=== PATIENT | female | born 1985 | race Caucasian/White ===

== ENCOUNTER 2016-11-12 08:09 | Emergency (ER) | payer OTHER ==
[~2016-11-12] VITALS: Ht 157.5 cm; Wt 54.9 kg
[~2016-11-12 08:09] MED LIST: BACT800T5 PO
[2016-11-12 08:27] VITALS: BP 105/77; PULSE 88; RESP 16; TEMP 98.1; O2SAT 100
[2016-11-12 08:45] LABS: BLOOD, URINE NEG (NEG); GLUCOSE,URINE NEG (NEG); KETONE, URINE NEG (NEG); METHOD OF COLLECTION CLEAN CATCH; NITRITE,URINE POS (NEG); PH, URINE 7.5 (5.0-8.5); URINE COLOR YELLOW (YELLW/STRAW)
[2016-11-12 08:50] LABS: BACTERIA, URINE MANY /hpf; COMMENT (UR) CULTURE INDICATED; CULTURE IF INDICATED CULTURE INDICATED
[2016-11-12] MEDS ORDERED: PYRI200T4 PO (09:02)
[2016-11-12] MEDS ORDERED: BACT800T5 PO (09:02)
--- NOTE | 2016-11-12 09:02 | PD ---
HPI Chief Complaint: Complaint Time Seen by Provider: 08:55 Travel History International Travel<30 days: No Contact w/Intl Traveler<30days: No Traveled to known affect area: No History of Present Illness HPI The patient is a 31-year-old female who presents emergency department for urinary symptoms of 3 days' duration. The patient complains of urgency, frequency, and discomfort with urination. She also complains of low back pain, malaise, and lethargy. She denies any fevers, chills, or sweats. The patient does have a history of UTIs with similar symptoms in the past. The patient's last menstrual cycle was November 02, 2016. She notes a history of tubal ligation. The patient denies any vaginal discharge, vaginal bleeding, or upper abdominal pain. Symptoms are moderate, possibly exacerbated by UTI, and there are no current alleviating symptoms. PFSH Past Medical History Bipolar Disorder: Yes Anxiety: Yes Depression: Yes Diabetes: No Diminished Hearing: No Neurologic: Yes (VERTIGO) Psychiatric: Yes (MOOD DISORDER) Reproductive: Yes Respiratory: Yes Immunizations Current: Yes Tetanus Vaccination: Unknown Influenza Vaccination: No ?: Not LMP: tubal ligation : 4 Para: 2 Miscarriage: 2 Ovarian Cysts: Yes Tubal Ligation: Yes (2012) Past Surgical History Gynecologic Surgery: Yes (LAPARSCOPIC , HX ENDOMETRIOSIS) Social History Alcohol Use: Yes (OCC) Tobacco Use: No Substance Use: No Allergies-Medications (Allergen,Severity, Reaction): Coded Allergies: Banana (Verified Allergy, Severe, MOUTH ON FIRE, 11/12/16) Latex (Verified Allergy, Severe, Irritation, 11/12/16) Tobramycin (Verified Allergy, Severe, SWOLLEN TEAR DUCT, 11/12/16) *MDRO Multi-Drug Resistant Organism (Unverified Allergy, Unknown, 11/12/16) MRSA 2006 and 2008 Reported Meds & Prescriptions Reported Meds & Active Scripts Active No Active Prescriptions or Reported Medications Review of Systems Except as stated in HPI: all other systems reviewed are Neg General / Constitutional: No: Fever Gastrointestinal: No: Nausea, Vomiting, Diarrhea, Abdominal Pain Genitourinary: Positive: Urgency, Frequency, Dysuria, Pelvic Pain (suprapubic discomfort), No: Discharge, Vaginal Bleeding Musculoskeletal: Positive: Pain (low back pain), No: Myalgias Physical Exam Narrative GENERAL: Awake, alert, pleasant 31-year-old female who appears her stated age and is in no acute respiratory distress. SKIN: Warm and dry. HEAD: Atraumatic. Normocephalic. EYES: No injection or drainage.. NECK: Trachea midline. No JVD. GASTROINTESTINAL: Abdomen soft, mild suprapubic discomfort. Back: No CVA tenderness. MUSCULOSKELETAL: No obvious deformities. No clubbing. No cyanosis. No edema. NEUROLOGICAL: Awake and alert. No obvious cranial nerve deficits. Motor grossly within normal limits. Normal speech. PSYCHIATRIC: Appropriate mood and affect; insight and judgment normal. Data Data Last Documented VS Vital Signs Date Time Temp Pulse Resp B/P Pulse Ox O2 Delivery O2 Flow Rate FiO2 11/12/16 08:27 98.1 88 16 105/77 100 Orders Urinalysis - C+S If Indicated (11/12/16 08:17) Ed Urine Pregnancytest Poc (11/12/16 08:17) Urine Culture (11/12/16 08:28) Labs Laboratory Tests Test 11/12/16 08:28 Urine Collection Type CLEAN CATCH Urine Color YELLOW Urine Turbidity SLIGHTY CLOUDY Urine pH 7.5 Urine Specific [place] 1.016 Urine Protein NEG mg/dL Urine Glucose (UA) NEG mg/dL Urine Ketones NEG mg/dL Urine Occult Blood NEG Urine Nitrite POS Urine Bilirubin NEG Urine Leukocyte Esterase TRACE Urine WBC 6-8 /hpf Urine Bacteria MANY /hpf Microscopic Urinalysis Comment CULTURE INDICATED MDM Medical Decision Making Medical Screen Exam Complete: Yes Emergency Medical Condition: Yes Medical Record Reviewed: Yes Interpretation(s) Laboratory Tests Test 11/12/16 08:28 Urine Collection Type CLEAN CATCH Urine Color YELLOW Urine Turbidity SLIGHTY CLOUDY Urine pH 7.5 Urine Specific [place] 1.016 Urine Protein NEG mg/dL Urine Glucose (UA) NEG mg/dL Urine Ketones NEG mg/dL Urine Occult Blood NEG Urine Nitrite POS Urine Bilirubin NEG Urine Leukocyte Esterase TRACE Urine WBC 6-8 /hpf Urine Bacteria MANY /hpf Microscopic Urinalysis Comment CULTURE INDICATED Differential Diagnosis Differential diagnosis includes UTI, cystitis, hemorrhagic cystitis, pyelonephritis, vaginitis, PID, cervicitis, atypical appendicitis. Narrative Course A UA was sent to lab which reveals nitrites, WBCs, and bacteria. Therefore, patient will be treated with Bactrim and pirating them. The patient denies any vaginal discharge. Bedside UA test was negative. Patient is advised to return if symptoms worsen or progress. Diagnosis Primary Impression: UTI (urinary tract infection) Qualified Code: N30.00 - Acute cystitis without hematuria Patient Instructions: General Instructions Additional Instructions: Medications as directed. Follow-up with your primary physician. Return if symptoms worsen or progress. Med/Other Pt SpecificInfo: Prescription(s) given Scripts Phenazopyridine (Pyridium)200 Mg [id number] Mg PO Q8H PRN (DYSURIA) 2 Days Ref 0 Prov:Isaias Garcia MD 11/12/16 Sulfamethoxazole-Trimethoprim (Bactrim DS)800-160 Mg Tab1 Tab PO BID #14 TAB Ref 0 Prov:Isaias Garcia MD 11/12/16 Disposition: 01 DISCHARGE HOME Condition: Stable Isaias Garcia MD Nov 12, 2016 09:02
[2016-12-15] MEDS ORDERED: LO LTAB PO (11:02)
[2016-12-15] MEDS ORDERED: NAPR550 PO (11:02)
[2016-12-15] MEDS ORDERED: METR-1 PO (11:02)
[2016-12-15] MEDS ORDERED: NAPR500T PO (14:54)
[2016-12-22] MEDS ORDERED: IBUP800T23 PO (10:57)
[2016-12-29] MEDS ORDERED: MACR100C2 PO (10:40)
[2017-02-02] MEDS ORDERED: NORE0.354 PO (13:31)
[2017-03-03] MEDS ORDERED: NORE0.354 PO (13:45)
[2017-03-03] MEDS ORDERED: FLUC150T PO (13:47)
== END 2016-11-12 09:20 | disposition home or self-care (01) ==
LOC: PHED 08:09
DX: N39.0 Urinary tract infection, site not specified (principal); F31.9 Bipolar disorder, unspecified; F41.8 Other specified anxiety disorders; R42 Dizziness and giddiness; F39 Unspecified mood [affective] disorder
CPT/HCPCS: 81001; 84703; 87077; 87086; 87186; 99283

== ENCOUNTER 2016-11-26 17:33 | Emergency (ER) | payer OTHER ==
[~2016-11-26] VITALS: Ht 157.5 cm; Wt 55.7 kg
[~2016-11-26 17:33] MED LIST changes: +PYRI200T4 PO
[2016-11-26 17:34] VITALS: BP 117/86; PULSE 105; RESP 16; TEMP 98.5; O2SAT 9; O2SAT 99
[2016-11-26 18:47] LABS: BLOOD, URINE NEG (NEG); GLUCOSE,URINE NEG (NEG); KETONE, URINE TRACE mg/dL (NEG); NITRITE,URINE NEG (NEG)
[2016-11-26 19:08] LABS: METHOD OF COLLECTION VOIDED
[2016-11-26 19:09] LABS: URINE COLOR YELLOW (YELLW/STRAW); WBC, URINE 0-2 /hpf (0-5)
[2016-11-26 19:10] LABS: BACTERIA, URINE RARE /hpf; COMMENT (UR) CULT NOT INDICATED; CULTURE IF INDICATED CULT NOT INDICATED
[2016-11-26] MEDS ORDERED: SODIUM CHLOR 0.9% 1000 ML INJ 1,000 ML IV SCH (19:18)
--- NOTE | 2016-11-26 19:24 | PD ---
HPI Chief Complaint: Abdominal Pain Time Seen by Provider: 19:20 Travel History International Travel<30 days: No Contact w/Intl Traveler<30days: No Traveled to known affect area: No History of Present Illness HPI Patient is a 31-year-old female presenting to the emergency department for evaluation of right lower quadrant abdominal pain. Patient states that started at approximately 2 PM when she was at work. She states the pain was so bad that it caused her to vomit. She denies any fevers, chills, back pain, diarrhea , constipation. Patient has had a tubal ligation. Patient states the pain is somewhat improved from the initial onset however it is still there. She rates her pain a 5 out of 10. PFSH Past Medical History Bipolar Disorder: Yes Anxiety: Yes Depression: Yes Diabetes: No Diminished Hearing: No Neurologic: Yes (VERTIGO) Psychiatric: Yes (MOOD DISORDER) Reproductive: Yes Respiratory: Yes Immunizations Current: Yes Tetanus Vaccination: > 5 Years Influenza Vaccination: No ?: Not LMP: 11/07/2016 : 4 Para: 2 Miscarriage: 2 Ovarian Cysts: Yes Tubal Ligation: Yes (2012) Past Surgical History Gynecologic Surgery: Yes (LAPARSCOPIC , HX ENDOMETRIOSIS) Social History Alcohol Use: Yes (OCC) Tobacco Use: No Substance Use: No Allergies-Medications (Allergen,Severity, Reaction): Coded Allergies: Banana (Verified Allergy, Severe, MOUTH ON FIRE, 11/26/16) Latex (Verified Allergy, Severe, Irritation, 11/26/16) Tobramycin (Verified Allergy, Severe, SWOLLEN TEAR DUCT, 11/26/16) *MDRO Multi-Drug Resistant Organism (Unverified Allergy, Unknown, 11/26/16) MRSA 2006 and 2008 Reported Meds & Prescriptions Reported Meds & Active Scripts Active Pyridium (Phenazopyridine HCl) 200 Mg Tab 200 Mg PO Q8H PRN 2 Days Bactrim DS (Sulfamethoxazole-Trimethoprim) 800-160 Mg Tab 1 Tab PO BID Review of Systems Except as stated in HPI: all other systems reviewed are Neg Eyes: No: Blurred Vision HENT: Positive: Headaches Cardiovascular: No: Chest Pain or Discomfort Respiratory: No: Shortness of Breath Gastrointestinal: Positive: Nausea, Abdominal Pain Genitourinary: No: Dysuria Physical Exam Narrative GENERAL: Developed, well-nourished, alert female. Resting comfortably in no acute distress SKIN: Warm and dry. HEAD: Atraumatic. Normocephalic. EYES: Pupils equal and round. No scleral icterus. No injection or drainage. ENT: No nasal bleeding or discharge. Mucous membranes pink and moist. NECK: Trachea midline. No JVD. CARDIOVASCULAR: Regular rate and rhythm. No murmur appreciated. RESPIRATORY: No accessory muscle use. Clear to auscultation. Breath sounds equal bilaterally. GASTROINTESTINAL: Abdomen soft, and her to palpation in right lower quadrant. No rebound, positive guarding. Positive bowel sounds MUSCULOSKELETAL: No obvious deformities. No clubbing. No cyanosis. No edema. NEUROLOGICAL: Awake and alert. No obvious cranial nerve deficits. Motor grossly within normal limits. Normal speech. PSYCHIATRIC: Appropriate mood and affect; insight and judgment normal. Data Data Last Documented VS Vital Signs Date Time Temp Pulse Resp B/P Pulse Ox O2 Delivery O2 Flow Rate FiO2 11/26/16 20:08 16 11/26/16 20:07 88 109/62 97 Room Air 11/26/16 17:34 98.5 Orders Urinalysis - C+S If Indicated (11/26/16 17:39) Ed Urine Pregnancytest Poc (11/26/16 17:39) Complete Blood Count With Diff (11/26/16 19:18) Comprehensive Metabolic Panel (11/26/16 19:18) Lipase (11/26/16 19:18) Lactic Acid (11/26/16 19:18) Ct Abd/Pel W Iv Contrast(Rout) (11/26/16 19:18) Iv Access Insert/Monitor (11/26/16 19:18) Ondansetron Inj (Zofran Inj) (11/26/16 19:30) Sodium Chlor 0.9% 1000 Ml Inj (Ns 1000 M (11/26/16 19:18) Sodium Chloride 0.9% Flush (Ns Flush) (11/26/16 19:30) Ketorolac Inj (Toradol Inj) (11/26/16 19:30) Iohexol 350 Inj (Omnipaque 350 Inj) (11/26/16 19:47) Morphine Inj (Morphine Inj) (11/26/16 20:15) Labs Laboratory Tests Test 11/26/16 11/26/16 11/26/16 18:18 18:55 19:30 Urine Collection Type VOIDED Urine Color YELLOW Urine Turbidity CLEAR Urine pH 6.0 Urine Specific [place] 1.014 Urine Protein NEG mg/dL Urine Glucose (UA) NEG mg/dL Urine Ketones TRACE mg/dL Urine Occult Blood NEG Urine Nitrite NEG Urine Bilirubin NEG Urine Leukocyte Esterase NEG Urine WBC 0-2 /hpf Urine Squamous Epithelial 6-8 /hpf Cells Urine Bacteria RARE /hpf Microscopic Urinalysis Comment CULT NOT INDICATED Urine Collection Time 181 White Blood Count 8.3 TH/MM3 Red Blood Count 4.26 MIL/MM3 Hemoglobin 13.3 GM/DL Hematocrit 38.7 % Mean Corpuscular Volume 90.8 FL Mean Corpuscular Hemoglobin 31.2 PG Mean Corpuscular Hemoglobin 34.4 % Concent Red Cell Distribution Width 11.7 % Platelet Count 374 TH/MM3 Mean Platelet Volume 7.4 FL Neutrophils (%) (Auto) 67.3 % Lymphocytes (%) (Auto) 24.4 % Monocytes (%) (Auto) 4.7 % Eosinophils (%) (Auto) 1.0 % Basophils (%) (Auto) 2.6 % Neutrophils # (Auto) 5.6 TH/MM3 Lymphocytes # (Auto) 2.0 TH/MM3 Monocytes # (Auto) 0.4 TH/MM3 Eosinophils # (Auto) 0.1 TH/MM3 Basophils # (Auto) 0.2 TH/MM3 CBC Comment DIFF FINAL Differential Comment Sodium Level 140 MEQ/L Potassium Level 3.5 MEQ/L Chloride Level 105 MEQ/L Carbon Dioxide Level 27.8 MEQ/L Anion Gap 7 MEQ/L Blood Urea Nitrogen 10 MG/DL Creatinine 0.66 MG/DL Estimat Glomerular Filtration 104 ML/MIN Rate Random Glucose 85 MG/DL Calcium Level 8.6 MG/DL Total Bilirubin 0.4 MG/DL Aspartate Amino Transf 18 U/L (AST/SGOT) Alanine Aminotransferase 27 U/L (ALT/SGPT) Alkaline Phosphatase 75 U/L Total Protein 7.7 GM/DL Albumin 4.1 GM/DL Lipase 98 U/L Lactic Acid Level 0.6 mmol/L [facility] Medical Decision Making Medical Screen Exam Complete: Yes Emergency Medical Condition: Yes Interpretation(s) Vital Signs Date Time Temp Pulse Resp B/P Pulse Ox O2 Delivery O2 Flow Rate FiO2 11/26/16 17:34 98.5 105 16 117/86 99 Differential Diagnosis Appendicitis versus obstruction versus colitis versus ovarian cyst versus ovarian torsion versus other Narrative Course Patient is a 31-year-old female presenting to the emergency department for evaluation of right lower quadrant abdominal pain. Pain started approximately 2 PM this afternoon. Patient is mildly tender on exam. CT, labs ordered and pending. Patient given Toradol for her headache, pain medication order per my attending physician. CT scan abdomen and pelvis is negative for acute abnormality. It does show mild constipation. CBC, chemistry, urinalysis is unremarkable. Her is negative. Patient 's vital signs are stable. Patient will be discharged home with a bowel regimen. Plan was discussed with my attending physician who is in agreement. Discussed results of labs and imaging with patient. She was encouraged to follow-up with her primary doctor return to emergency department new or worsening symptoms. She verbalized understanding of instructions. Patient is stable for discharge. Diagnosis Primary Impression: Constipation Qualified Code: K59.00 - Constipation, unspecified constipation type Referrals: Primary Care Physician Patient Instructions: Constipation (ED), General Instructions Additional Instructions: Follow-up with your primary doctor Return to emergency department for any new or worsening symptoms Take medications as directed Med/Other Pt SpecificInfo: Prescription(s) given Scripts Polyethylene Glycol 3350 Powder (Miralax Powder)17 Gm Powd17 Gm PO DAILY PRN ( CONSTIPATION) #1 BOTTLE Ref 0 Mix and dissolve one measuring cap-ful (17 grams) in water or juice. Prov:Ann-Marie Zamora 11/26/16 Docusate Sodium (Colace)100 Mg [id number] Mg PO BID #60 CAP Ref 0 Prov:Ann-Marie Zamora 11/26/16 Disposition: 01 DISCHARGE HOME Condition: Stable Ann-Marie Zamora Nov 26, 2016 19:24
[2016-11-26] MEDS ORDERED: ONDANSETRON HCL 4 MG/2 ML VIAL IVP ONE (19:30)
[2016-11-26] MEDS ORDERED: SODIUM CHLORIDE 0.9% FLUSH 5 ML FLUSH IVF PRN (19:30)
[2016-11-26] MEDS ORDERED: KETOROLAC TROMETHAMINE 30 MG/ML (IVP) VIAL IV PUSH ONE (19:30)
[2016-11-26 19:36] LABS: AUTOMATED NEUTROPHIL # 5.6 TH/MM3 (1.8-7.7); BASOPHIL # 0.2 TH/MM3 (0-0.2); BASOPHIL % 2.6 % (0.0-2.0); EOSINOPHIL # 0.1 TH/MM3 (0-0.4); HEMATOCRIT 38.7 % (35.0-46.0); HEMO FLAGS DIFF FINAL; LYMPH % 24.4 % (9.0-44.0); MEAN CELL VOLUME 90.8 FL (80.0-100.0); MEAN CORPUSCULAR HEMOGLOBIN 31.2 PG (27.0-34.0); MEAN CORPUSCULAR HGB CONC 34.4 % (32.0-36.0); MONO % 4.7 % (0.0-8.0); NEUT % 67.3 % (16.0-70.0); PLATELET COUNT 374 TH/MM3 (150-450); RED BLOOD COUNT 4.26 MIL/MM3 (4.00-5.30); RED CELL DISTRIBUTION WIDTH 11.7 % (11.6-17.2); WHITE BLOOD COUNT 8.3 TH/MM3 (4.0-11.0)
[2016-11-26 19:45] LABS: CHLORIDE 105 MEQ/L (98-107); POTASSIUM 3.5 MEQ/L (3.5-5.1); SODIUM (NA) 140 MEQ/L (136-145)
[2016-11-26] MEDS ORDERED: IOHEXOL 350 MG/ML 10 ML VIAL (for RAD DIAG) IV ONE (19:47)
[2016-11-26 19:48] LABS: ANION GAP 7 MEQ/L (5-15); BICARBONATE 27.8 MEQ/L (21.0-32.0)
[2016-11-26 19:49] LABS: BLOOD UREA NITROGEN 10 MG/DL (7-18)
[2016-11-26 19:51] LABS: ALT (GPT) 27 U/L (10-53); AST (GOT) 18 U/L (15-37); GLOMERULAR FILTRATION RATE 104 ML/MIN (>89)
[2016-11-26 19:53] LABS: TOTAL BILIRUBIN ADULT 0.4 MG/DL (0.2-1.0)
[2016-11-26 19:54] LABS: ALKALINE PHOSPHATASE 75 U/L (45-117)
[2016-11-26 20:07] VITALS: BP 109/62; PULSE 88; RESP 16; O2SAT 97
[2016-11-26] MEDS ORDERED: MORPHINE SULFATE 4 MG/ML INJ IV PUSH ONE (20:15)
--- NOTE | 2016-11-26 20:20 | RADHPO ---
EXAM DATE/TIME: 11/26/2016 19:41 [facility] COMPARISON: No previous studies available for comparison. INDICATIONS : Right side abdomen pain today. IV CONTRAST: 100 cc Omnipaque 350 (iohexol) IV ORAL CONTRAST: No oral contrast ingested. RADIATION DOSE: 6.21 CTDIvol (mGy) MEDICAL HISTORY : Endometriosis. SURGICAL HISTORY : Tubal ligation. ENCOUNTER: Initial ACUITY: 1 day PAIN SCALE: 8/10 LOCATION: Right abdomen TECHNIQUE: Volumetric scanning of the abdomen and pelvis was performed. Using automated exposure control and ad justment of the mA and/or kV according to patient size, radiation dose was kept as low as reasonably achievable to obtain optimal diagnostic quality images. FINDINGS: Lung bases are clear. No significant abnormality the liver, spleen, adrenals, kidneys or pancreas. No free fluid. No bowel obstruction. Mild constipation. No adenopathy. There is no evidence for obstructive uropathy. The appendix is not clearly visualized but no inflamma tory changes are seen in the right lower quadrant. CONCLUSION: 1. No acute findings. Specifically no CT findings of obstructive uropathy. No inflammatory changes ar e seen in the abdomen and pelvis. Mild constipation. Alin Pandey MD on November 26, 2016 at 20:15 Board Certified Radiologist. This report was verified electronically.
[2016-11-26] MEDS ORDERED: MIRA33504 PO (20:36)
[2016-11-26] MEDS ORDERED: COLA100C3 PO (20:36)
[2016-11-26 21:08] VITALS: RESP 16
[2016-11-26 21:09] VITALS: BP 115/68
[2016-12-15] MEDS ORDERED: NAPR550 PO (11:02)
[2016-12-15] MEDS ORDERED: METR-1 PO (11:02)
[2016-12-15] MEDS ORDERED: LO LTAB PO (11:02)
[2016-12-15] MEDS ORDERED: NAPR500T PO (14:54)
[2016-12-22] MEDS ORDERED: IBUP800T23 PO (10:57)
[2016-12-29] MEDS ORDERED: MACR100C2 PO (10:40)
[2017-02-02] MEDS ORDERED: NORE0.354 PO (13:31)
[2017-03-03] MEDS ORDERED: NORE0.354 PO (13:45)
[2017-03-03] MEDS ORDERED: FLUC150T PO (13:47)
== END 2016-11-26 21:14 | disposition home or self-care (01) ==
LOC: PHED 17:33 → PHEFT 21:14
DX: K59.00 Constipation, unspecified (principal); F31.9 Bipolar disorder, unspecified; F41.9 Anxiety disorder, unspecified
CPT/HCPCS: 74177; 80053; 81001; 83605; 83690; 84703; 85025; 96361; 96374; 96375; 99284; J1885; J2270; J2405; J7030; Q9967

== ENCOUNTER 2017-05-13 12:09 | Emergency (ER) | payer OTHER ==
[~2017-05-13] VITALS: Ht 157.5 cm; Wt 56.0 kg
[~2017-05-13 12:09] MED LIST changes: -BACT800T5 PO; +FLUC150T PO; +IBUP800T23 PO; +NORE0.354 PO; -PYRI200T4 PO
[2017-05-13 12:12] VITALS: BP 128/85; PULSE 104; RESP 16; TEMP 98.4; O2SAT 100
--- NOTE | 2017-05-13 12:19 | PD ---
HPI Chief Complaint: Headache Time Seen by Provider: 12:18 Travel History International Travel<30 days: No Contact w/Intl Traveler<30days: No Traveled to known affect area: No History of Present Illness HPI 32-year-old female came to the emergency room with history of intractable headache for past 3 days. Patient says she usually gets headache which after taking medication was awake but this time it has not been going away. It feels like it's behind both her eyes and temples. She has been nauseous and this morning vomited. She has been taking Tylenol and Motrin at home. She went to see an brick off bearer yesterday and was told that she probably has ocular migraines and she was having some blurred vision from her right eye. Vital signs are stable. She had the light turned off in the room but was on her smart phone. Patient was slightly tachycardic upon arrival. [facility] Past Medical History Narrative Medical List of her past medical, surgical, social and family history was reviewed from the nursing note. Bipolar Disorder: Yes Anxiety: Yes Depression: Yes Diabetes: No Diminished Hearing: No Neurologic: Yes (VERTIGO) Psychiatric: Yes (MOOD DISORDER) Reproductive: Yes Respiratory: Yes Immunizations Current: Yes LMP: 04/30/2017 : 4 Para: 2 Miscarriage: 2 Ovarian Cysts: Yes Tubal Ligation: Yes (2012) Past Surgical History Gynecologic Surgery: Yes (LAPARSCOPIC , HX ENDOMETRIOSIS) Social History Alcohol Use: Yes (OCC) Tobacco Use: No Substance Use: No Allergies-Medications (Allergen,Severity, Reaction): Coded Allergies: Banana (Verified Allergy, Severe, MOUTH ON FIRE, 05/13/17) Latex (Verified Allergy, Severe, Irritation, 05/13/17) Tobramycin (Verified Allergy, Severe, SWOLLEN TEAR DUCT, 05/13/17) *MDRO Multi-Drug Resistant Organism (Unverified Allergy, Unknown, 05/13/17) MRSA 2006 and 2008 Comments List of her allergies reviewed from the nursing note. Reported Meds & Prescriptions Reported Meds & Active Scripts Active Mhyepeztkn-Agynhwkmkuiue-Ybqjhhch 50-300-40 Mg Cap 1 Cap PO Q4H PRN Do not exceed 6 capsules/day. Ibuprofen 800 Mg Tab 800 Mg PO Q8H PRN Narrative Medication List of her home medications reviewed from the nursing note Review of Systems Except as stated in HPI: all other systems reviewed are Neg Physical Exam Narrative GENERAL: Awake, alert, mild distress SKIN: Focused skin assessment warm/dry. HEAD: Atraumatic. Normocephalic. EYES: Pupils equal and round. No scleral icterus. No injection or drainage. ENT: No nasal bleeding or discharge. Mucous membranes pink and moist. NECK: Trachea midline. No JVD. CARDIOVASCULAR: Regular rate and rhythm. No murmur appreciated. RESPIRATORY: No accessory muscle use. Clear to auscultation. Breath sounds equal bilaterally. GASTROINTESTINAL: Abdomen soft, non-tender, nondistended. Hepatic and splenic margins not palpable. MUSCULOSKELETAL: No obvious deformities. No clubbing. No cyanosis. No edema. NEUROLOGICAL: Awake and alert. No obvious cranial nerve deficits. Motor grossly within normal limits. Normal speech. PSYCHIATRIC: Appropriate mood and affect; insight and judgment normal. Data Data Last Documented VS Vital Signs Date Time Temp Pulse Resp B/P Pulse Ox O2 Delivery O2 Flow Rate FiO2 05/13/17 14:35 90 125/68 98 05/13/17 12:20 Room Air 05/13/17 12:12 98.4 16 Orders Complete Blood Count With Diff (05/13/17 12:34) Basic Metabolic Panel (Bmp) (05/13/17 12:34) Ct Brain W/O Iv Contrast(Rout) (05/13/17 12:34) Ecg Monitoring (05/13/17 12:34) Iv Access Insert/Monitor (05/13/17 12:34) Oximetry (05/13/17 12:34) Sodium Chloride 0.9% Flush (Ns Flush) (05/13/17 12:45) Prochlorperazine Inj (Compazine Inj) (05/13/17 12:45) Sodium Chlor 0.9% 1000 Ml Inj (Ns 1000 M (05/13/17 12:34) Labs Laboratory Tests Test 05/13/17 05/13/17 13:10 13:54 Sodium Level 139 MEQ/L Potassium Level 4.2 MEQ/L Chloride Level 106 MEQ/L Carbon Dioxide Level 25.5 MEQ/L Anion Gap 8 MEQ/L Blood Urea Nitrogen 7 MG/DL Creatinine 0.64 MG/DL Estimat Glomerular Filtration 107 ML/MIN Rate Random Glucose 80 MG/DL Calcium Level 8.8 MG/DL White Blood Count 5.9 TH/MM3 Red Blood Count 4.13 MIL/MM3 Hemoglobin 12.7 GM/DL Hematocrit 37.2 % Mean Corpuscular Volume 90.1 FL Mean Corpuscular Hemoglobin 30.8 PG Mean Corpuscular Hemoglobin 34.2 % Concent Red Cell Distribution Width 11.2 % Platelet Count 376 TH/MM3 Mean Platelet Volume 6.8 FL Neutrophils (%) (Auto) 56.6 % Lymphocytes (%) (Auto) 33.9 % Monocytes (%) (Auto) 6.1 % Eosinophils (%) (Auto) 1.6 % Basophils (%) (Auto) 1.8 % Neutrophils # (Auto) 3.3 TH/MM3 Lymphocytes # (Auto) 2.0 TH/MM3 Monocytes # (Auto) 0.4 TH/MM3 Eosinophils # (Auto) 0.1 TH/MM3 Basophils # (Auto) 0.1 TH/MM3 CBC Comment DIFF FINAL Differential Comment MDM Medical Decision Making Medical Screen Exam Complete: Yes Emergency Medical Condition: Yes Medical Record Reviewed: Yes Differential Diagnosis Migraine headache, headache NOS, intracranial bleed Narrative Course 1:[address] is within normal limit. Electrolytes are within normal limit. Awaiting for the CBC. Patient was given IV fluid and Compazine. If her chemistry is within normal limit I'll discharge her home. If the headache continues I'll add Toradol. Procedures EKG Prior to Arrival: No Diagnosis Primary Impression: Status migrainosus Referrals: Primary Care Physician Departure Forms: Tests/Procedures, Work Release Enter return to work date: May 16, 2017 Additional Instructions: Please return to the ER if the condition worsens or any other new concerns. Otherwise follow-up with primary care. Complete bedrest and rest to your eyes and brain is very important. This means he should not be watching television, computer or Smart phone. Try to get as much rest as possible. Caffeine or caffeinated beverage is good for the headache. Patient has been the prescription direction. Med/Other Pt SpecificInfo: Prescription(s) given Scripts Grwbdtyjrm-Ygimmxlkvrfgg-Deejsivm 50-300-40 Mg Cap1 Cap PO Q4H PRN (HEADACHE) # 15 CAP Ref 0 Do not exceed 6 capsules/day. Prov:Ashok Nolasco MD 05/13/17 Disposition: 01 DISCHARGE HOME Condition: Stable Ashok Nolasco MD May 13, 2017 12:18
[2017-05-13 12:20] VITALS: O2SAT 98
[2017-05-13] MEDS ORDERED: SODIUM CHLOR 0.9% 1000 ML INJ 1,000 ML IV ONE (12:34)
[2017-05-13] MEDS ORDERED: SODIUM CHLORIDE 0.9% FLUSH 10 ML FLUSH IVF PRN (12:45)
[2017-05-13] MEDS ORDERED: PROCHLORPERAZINE INJ 10 MG/2 ML VIAL IVP ONE (12:45)
--- NOTE | 2017-05-13 12:56 | RADRPT ---
EXAM DATE/TIME: 05/13/2017 12:35 [facility] COMPARISON: No previous studies available for comparison. INDICATIONS : Cephalgia. Intermittent blurriness in right eye. RADIATION DOSE: 63.32 CTDIvol (mGy) MEDICAL HISTORY : None SURGICAL HISTORY : Tubal ligation. ENCOUNTER: Initial ACUITY: 2 days PAIN SCALE: 7/10 LOCATION: cranial TECHNIQUE: Multiple contiguous axial images were obtained of the head. Using automated exposure control and adj ustment of the mA and/or kV according to patient size, radiation dose was kept as low as reasonably a chievable to obtain optimal diagnostic quality images. DICOM format image data is available electro nically for review and comparison. FINDINGS: CEREBRUM: The ventricles are normal for age. No evidence of midline shift, mass lesion, hemorrhage or acute in farction. No extra-axial fluid collections are seen. POSTERIOR FOSSA: The cerebellum and brainstem are intact. The 4th ventricle is midline. The cerebellopontine angle i s unremarkable. EXTRACRANIAL: The visualized portion of the orbits is intact. SKULL: The calvaria is intact. No evidence of skull fracture. CONCLUSION: Negative for acute process. Jan Flores MD FACR on May 13, 2017 at 12:53 Board Certified Radiologist. This report was verified electronically.
[2017-05-13 13:39] LABS: POTASSIUM 4.2 MEQ/L (3.5-5.1)
[2017-05-13 13:42] LABS: BICARBONATE 25.5 MEQ/L (21.0-32.0)
[2017-05-13 14:05] LABS: AUTOMATED NEUTROPHIL # 3.3 TH/MM3 (1.8-7.7); BASOPHIL # 0.1 TH/MM3 (0-0.2); BASOPHIL % 1.8 % (0.0-2.0); EOSINOPHIL # 0.1 TH/MM3 (0-0.4); EOSINOPHIL % 1.6 % (0.0-4.0); HEMATOCRIT 37.2 % (35.0-46.0); HEMO FLAGS DIFF FINAL; LYMPH % 33.9 % (9.0-44.0); MEAN CELL VOLUME 90.1 FL (80.0-100.0); MEAN CORPUSCULAR HEMOGLOBIN 30.8 PG (27.0-34.0); MEAN CORPUSCULAR HGB CONC 34.2 % (32.0-36.0); MONO % 6.1 % (0.0-8.0); NEUT % 56.6 % (16.0-70.0); PLATELET COUNT 376 TH/MM3 (150-450); RED BLOOD COUNT 4.13 MIL/MM3 (4.00-5.30); RED CELL DISTRIBUTION WIDTH 11.2 % (11.6-17.2); WHITE BLOOD COUNT 5.9 TH/MM3 (4.0-11.0)
[2017-05-13] MEDS ORDERED: BUTA1CAP5 PO (14:08)
[2017-05-13 14:35] VITALS: BP 125/68
== END 2017-05-13 14:42 | disposition home or self-care (01) ==
LOC: PHED 12:09
DX: G43.901 Migraine, unspecified, not intractable, with status migrainosus (principal)
CPT/HCPCS: 70450; 80048; 85025; 96361; 96374; 99285; J0780; J7030

== ENCOUNTER 2017-09-16 10:19 | Emergency (ER) | payer SELFPAY ==
[~2017-09-16] VITALS: Ht 157.5 cm; Wt 57.0 kg
[~2017-09-16 10:19] MED LIST changes: +BUTA1CAP5 PO; -FLUC150T PO; +IBUP1TAB7 PO; -IBUP800T23 PO; -NORE0.354 PO
[2017-09-16 10:20] VITALS: BP 127/84; PULSE 103; RESP 18; TEMP 98.5; O2SAT 100
[2017-09-16] MEDS ORDERED: ONDANSETRON ODT 4 MG TAB PO ONE (10:45)
[2017-09-16 11:14] LABS: BACTERIA, URINE RARE /hpf; BLOOD, URINE NEG (NEG); COMMENT (UR) CULT NOT INDICATED; CULTURE IF INDICATED CULT NOT INDICATED; GLUCOSE,URINE NEG (NEG); KETONE, URINE NEG (NEG); MUCUS URINE FEW /lpf (OCC); NITRITE,URINE NEG (NEG); SQUAMOUS EPITHELIAL CELL URINE <1 /hpf (0-5); URINE COLOR LIGHT-YELLOW (YELLW/STRAW)
--- NOTE | 2017-09-16 11:47 | PD ---
HPI . Dysuria Chief Complaint: Flank/Kidney Pain Time Seen by Provider: 10:35 Travel History International Travel<30 days: No Contact w/Intl Traveler<30days: No Traveled to known affect area: No History of Present Illness HPI 32-year-old female presents emergency department for evaluation of dysuria since Thursday. Patient denies any fever, chills, malaise. Patient states she became nauseated today while at work and vomited once. Patient states she still feels nauseous. Patient denies any major medical history other than take any daily medication. PFSH Past Medical History Bipolar Disorder: Yes Anxiety: Yes Depression: Yes Diabetes: No Diminished Hearing: No Neurologic: Yes (VERTIGO) Psychiatric: Yes (MOOD DISORDER) Reproductive: Yes Respiratory: Yes Immunizations Current: Yes Migraines: Yes (occular) ?: Not LMP: 09/16/17 : 4 Para: 2 Miscarriage: 2 Ovarian Cysts: Yes Tubal Ligation: Yes (2012) Past Surgical History Gynecologic Surgery: Yes (LAPARSCOPIC , HX ENDOMETRIOSIS) Social History Alcohol Use: Yes (OCC) Tobacco Use: No Substance Use: No Allergies-Medications (Allergen,Severity, Reaction): Coded Allergies: banana (Unverified Allergy, Severe, MOUTH ON FIRE, 09/16/17) latex (Unverified Allergy, Severe, Irritation, 09/16/17) tobramycin (Unverified Allergy, Severe, SWOLLEN TEAR DUCT, 09/16/17) *MDRO Multi-Drug Resistant Organism (Unverified Allergy, Unknown, 05/13/17) MRSA 2006 and 2008 Reported Meds & Prescriptions Reported Meds & Active Scripts Active Zofran Odt (Ondansetron Odt) 4 Mg Tab 4 Mg SL Q6HR PRN Review of Systems Except as stated in HPI: all other systems reviewed are Neg Genitourinary: Positive: Dysuria Physical Exam Narrative GENERAL: Well-nourished, well-developed 32-year-old female patient in no acute distress. Nontoxic appearing. SKIN: Focused skin assessment warm/dry. HEAD: Normocephalic. Atraumatic. EYES: No scleral icterus. No injection or drainage. NECK: Supple, trachea midline. No JVD or lymphadenopathy. CARDIOVASCULAR: Regular rate and rhythm without murmurs, gallops, or rubs. RESPIRATORY: Breath sounds equal bilaterally. No accessory muscle use. GASTROINTESTINAL: Abdomen soft, non-tender, nondistended. MUSCULOSKELETAL: No cyanosis, or edema. BACK: Nontender without obvious deformity. No CVA tenderness. Data Data Last Documented VS Vital Signs Date Time Temp Pulse Resp B/P (MAP) Pulse Ox O2 Delivery O2 Flow Rate FiO2 09/16/17 13:14 79 19 113/70 (84) 98 09/16/17 10:20 98.5 Room Air Orders Orders Urinalysis - C+S If Indicated (09/16/17 10:38) Ondansetron Odt (Zofran Odt) (09/16/17 10:45) Ed Urine Pregnancytest Poc (09/16/17 12:22) Ed Discharge Order (09/16/17 12:53) Labs Laboratory Tests Test 09/16/17 11:00 Urine Color LIGHT-YELLOW Urine Turbidity CLEAR Urine pH 6.0 Urine Specific Chaplin 1.010 Urine Protein NEG mg/dL Urine Glucose (UA) NEG mg/dL Urine Ketones NEG mg/dL Urine Occult Blood NEG Urine Nitrite NEG Urine Bilirubin NEG Urine Urobilinogen LESS THAN 2.0 MG/DL Urine Leukocyte Esterase NEG Urine WBC 1 /hpf Urine Squamous Epithelial Cells <1 /hpf Urine Bacteria RARE /hpf Urine Mucus FEW /lpf Microscopic Urinalysis Comment CULT NOT INDICATED MDM Medical Decision Making Medical Screen Exam Complete: Yes Emergency Medical Condition: Yes Differential Diagnosis Differential diagnoses include but not limited to cystitis, polynephritis, nephrolithiasis Narrative Course 32-year-old female presents emergency department for evaluation of dysuria since Thursday. Patient denies any hematuria. Patient states it martino upon urination. Patient states she's had a history of this in the past and believes she might have a urinary tract infection. Urinalysis ordered and pending. Differential for nausea. Urinalysis shows no acute abnormality. Patient reevaluated and pelvic exam was recommended to evaluate for bacterial vaginosis and STDs. Patient states she is on her menstrual cycle and does not want a pelvic exam. Patient instructed on the risks of not getting evaluated. Patient understands the risks and requests to be discharged home. POC test negative. Patient given prescription for Zofran and discharged home with instructions to stay hydrated and to follow-up with her primary care. Diagnosis Primary Impression: Dysuria Referrals: Primary Care Physician Patient Instructions: Dysuria (ED), General Instructions Additional Instructions: Please return to emergency department if your symptoms return or worsen. Follow up with your primary care provider. Take medications as prescribed. Stay hydrated, get enough rest, diet as tolerated Med/Other Pt SpecificInfo: Prescription(s) given Scripts Ondansetron Odt (Zofran Odt) 4 Mg Tab 4 MG SL Q6HR Y for Nausea/Vomiting, #10 TAB 0 Refills Prov: Jessika Tejada 09/16/17 Disposition: 01 DISCHARGE HOME Condition: Stable Jessika Tejada Sep 16, 2017 11:47
[2017-09-16] MEDS ORDERED: ZOFR4TAB3 SL (12:51)
[2017-09-16 13:14] VITALS: BP 113/70
== END 2017-09-16 13:15 | disposition home or self-care (01) ==
LOC: NEPD 10:19
DX: R30.0 Dysuria (principal); R11.0 Nausea; F31.9 Bipolar disorder, unspecified; F41.9 Anxiety disorder, unspecified; F39 Unspecified mood [affective] disorder
CPT/HCPCS: 81001; 84703; 99283

== ENCOUNTER 2017-10-27 18:32 | Emergency (ER) | payer MEDICAID ==
[~2017-10-27] VITALS: Ht 157.5 cm; Wt 59.2 kg
[~2017-10-27 18:32] MED LIST changes: -BUTA1CAP5 PO; -IBUP1TAB7 PO; +ZOFR4TAB3 SL
[2017-10-27 18:35] VITALS: BP 130/77; PULSE 95; RESP 16; TEMP 97.1; O2SAT 98
--- NOTE | 2017-10-27 18:49 | PD ---
HPI Chief Complaint: ENT Complaint Time Seen by Provider: 18:41 Travel History International Travel<30 days: No Contact w/Intl Traveler<30days: No Traveled to known affect area: No History of Present Illness HPI Patient comes in complaining of right ear pain radiating into her throat ongoing for 4 days. Patient reports cold like symptoms that went away and then 4 days ago started having right ear pain going into her throat. Describes pain as a stabbing aching pain. Pain is worse with swallowing. Ear pain is worse with going out into the cold weather. Reports her pain comes and goes. Taking Sudafed and ibuprofen help alleviate the pain. Patient also complaining of her vertigo coming back over the past 4 days as well. Patient reports has a history of vertigo and this feels similar. Patient states that she tends to get vertigo when the weather changes. Patient states she has not followed up with a specialist but is is normally given meclizine in the past and told that she will use [id number] motion sickness most medicine. Patient took over- the-counter motion sickness medication this morning with some relief of her vertigo. Denies anything making it worse. Denies any symptoms currently. PFSH Past Medical History Bipolar Disorder: Yes Anxiety: Yes Depression: Yes Diabetes: No Diminished Hearing: No Neurologic: Yes (VERTIGO) Psychiatric: Yes (MOOD DISORDER) Reproductive: Yes Respiratory: Yes Immunizations Current: Yes Migraines: Yes (occular) ?: Unknown : 4 Para: 2 Miscarriage: 2 Ovarian Cysts: Yes Tubal Ligation: Yes (2012) Past Surgical History Gynecologic Surgery: Yes (LAPARSCOPIC , HX ENDOMETRIOSIS) Social History Alcohol Use: Yes (OCC) Tobacco Use: No Substance Use: No Allergies-Medications (Allergen,Severity, Reaction): Coded Allergies: banana (Unverified Allergy, Severe, MOUTH ON FIRE, 10/27/17) latex (Unverified Allergy, Severe, Irritation, 10/27/17) tobramycin (Unverified Allergy, Severe, SWOLLEN TEAR DUCT, 10/27/17) *MDRO Multi-Drug Resistant Organism (Unverified Allergy, Unknown, 10/27/17) MRSA 2006 and 2008 Reported Meds & Prescriptions Reported Meds & Active Scripts Active Meclizine (Meclizine HCl) 25 Mg Tab 25 Mg PO TID PRN Review of Systems Except as stated in HPI: all other systems reviewed are Neg Physical Exam Narrative GENERAL: Well-developed, well nourished, in no acute distress, and non-ill appearing. SKIN: Focused skin assessment warm and dry. HEAD: Atraumatic. Normocephalic. EYES: Pupils equal and round. EOMI. No scleral icterus. No injection or drainage. ENT: No nasal bleeding or discharge. Mucous membranes pink and moist. Tympanic membranes pearly morton bilaterally. Posterior pharynx nonerythematous without exudate. Uvula is midline. Postnasal drip noted. No tenderness to facial sinuses to palpation. NECK: Trachea midline. No cervical lymphadenopathy. Supple. No nuclear rigidity. RESPIRATORY: No accessory muscle use. No respiratory distress. MUSCULOSKELETAL: No obvious deformities. No clubbing. No cyanosis. No edema. Full range of motion. NEUROLOGICAL: Awake and alert. No obvious cranial nerve deficits. Motor grossly within normal limits. Normal speech. PSYCHIATRIC: Appropriate mood and affect; insight and judgment normal. Data Data Last Documented VS Vital Signs Date Time Temp Pulse Resp B/P (MAP) Pulse Ox O2 Delivery O2 Flow Rate FiO2 10/27/17 18:35 97.1 95 16 130/77 (94) 98 Orders Orders Meclizine (Antivert) (10/27/17 19:00) Group A Rapid Strep Screen (10/27/17 18:46) Strep Culture (Group A) (10/27/17 18:49) Ed Discharge Order (10/27/17 19:17) MDM Medical Decision Making Medical Screen Exam Complete: Yes Emergency Medical Condition: Yes Differential Diagnosis Otitis media, otitis externa, otalgia, viral pharyngitis, strep pharyngitis, vertigo Narrative Course Patient in no obvious distress upon re-evaluation. All pertinent laboratory result(s) discussed with patient. Patient was asked if they wanted to speak to my attending, which the patient did not wish to do at this time. Any questions/ concerns in reference to patient diagnosis/condition discussed and clarified prior to patient's discharge. Reinforced sheer importance of close follow up with patient's primary physician or primary care clinic and/or ENT. Instructed patient to return to ED immediately, if symptoms return/worsen. Patient showed understanding of above instructions. Further instructions and recommendations were detailed in discharge paperwork. Patient ambulated without difficulty out of ED at discharge. Diagnosis Primary Impression: Otalgia of right ear Additional Impression: Vertigo Referrals: Oliverio Ayala MD [facility] Patient Instructions: Earache (ED), General Instructions, Vertigo (ED) Additional Instructions: Follow-up with your primary care physician and/or ENT in 3-5 days for reevaluation. Take all medication as prescribed. Use [id number] Tylenol and/or ibuprofen as needed for pain. Continue using [id number] Sudafed for symptomatic relief as needed. Return to the emergency department if symptoms get worse. Med/Other Pt SpecificInfo: Prescription(s) given Scripts Meclizine (Meclizine) 25 Mg Tab 25 MG PO TID Y for VERTIGO, #12 TAB 0 Refills Prov: Ashok Hopson MD 10/27/17 Disposition: 01 DISCHARGE HOME Condition: Stable Jamal Mcbride Oct 27, 2017 18:49
[2017-10-27] MEDS ORDERED: MECLIZINE HCL 25 MG TAB PO ONE (19:00)
[2017-10-27] MEDS ORDERED: MECL-62 PO (19:17)
== END 2017-10-27 19:31 | disposition home or self-care (01) ==
LOC: PHEFT 18:32
DX: H92.01 Otalgia, right ear (principal); R42 Dizziness and giddiness; R07.0 Pain in throat; Z87.09 Personal history of other diseases of the respiratory system; Z86.69 Personal history of other diseases of the nervous system and sense organs; Z86.59 Personal history of other mental and behavioral disorders
CPT/HCPCS: 87081; 87880; 99283